=== PATIENT | female | born 1960 | race African-American/Black ===

== ENCOUNTER → 2020-06-05 18:44 | Outpatient (CLI) | payer MEDICAID ==
[2020-06-05 19:39] LABS: BASOPHILS 0.4 % (0-2); EOSINOPHILS 1.2 % (0-7); HEMATOCRIT 40.7 % (36.0-48.0); HEMOGLOBIN 12.4 g/dL (12-16); IMMATURE GRANULOCYTES 0.3 % (0-5); LYMPHOCYTE ABS# 3.03 10x3/uL (1.18-3.74); LYMPHOCYTES 40.1 % (15-50); MCH 23.8 pg (26.0-34.0); MCHC 30.5 g/dL (31.0-37.0); MCV 78.1 fL (80.0-100.0); MONOCYTES 6.6 % (2-11); NEUTROPHIL ABS# 3.88 10x3/uL (1.56-6.13); NEUTROPHILS 51.4 % (40-80); RBC 5.21 10x6/uL (4.00-5.40); RDW 17.3 % (11.5-14.5); WBC 7.6 10x3/uL (4.8-10.8)
[2020-06-05 19:40] LABS: PLATELET COUNT 239 10x3/uL (130-400)
[2020-06-05 20:18] LABS: ALBUMIN 2.6 g/dL (3.4-5.0); ANION GAP 6.1 mmol/L (8-16); BILIRUBIN - TOTAL 0.11 mg/dL (0.2-1.3); CARBON DIOXIDE 35.5 mmol/L (21.0-32.0); CREATININE - SERUM 1.2 mg/dL (0.6-1.3); POTASSIUM - SERUM 3.6 mmol/L (3.5-5.1); PROTEIN - SERUM 6.6 g/dL (6.4-8.2)
== END | disposition home or self-care (01) ==
LOC: D.LABREF 18:44
PROVIDERS: ATTEND Family Medicine
DX: I10 Essential (primary) hypertension (principal); N18.4 Chronic kidney disease, stage 4 (severe); M16.0 Bilateral primary osteoarthritis of hip